=== PATIENT | male | born 1965 | race American Indian/Alaskan Native ===

== ENCOUNTER 2022-02-04 12:36 | Emergency (ER) | payer SELFPAY ==
[2022-02-04 12:51] VITALS: BP 176/89
== END 2022-02-04 19:28 | disposition left against medical advice (07) ==
LOC: ED 12:36
DX: R52 Pain, unspecified (principal); Z53.21 Procedure and treatment not carried out due to patient leaving prior to being seen by health care provider

== ENCOUNTER 2022-02-06 08:49 | Emergency (ER) | payer SELFPAY ==
[2022-02-06] MEDS ORDERED: cloNIDine 0.1 MG TAB PO ONE (10:12)
[2022-02-06] MEDS ORDERED: IBUPROFEN 800 MG TAB PO ONE (10:12)
--- NOTE | 2022-02-06 10:19 | Emergency Department Report ---
ED General Adult HPI - General Chief complaint: Extremity Injury, Lower Stated complaint: KNEE PAIN/ SWOLLEN PUI?: No Time Seen by Provider: 02/06/22 10:10 Source: patient Mode of arrival: Ambulatory Limitations: Language Barrier - History of Present Illness Initial comments: 56 yo comes to ER co b knee pain with no trauma. he states pain goes from one knee up his leg around his back and down the other denies back pain denies fever/chills denies abd pain ambulatory and nad on exam He states he called 911 and they told him bp and sugar are high he has no pcp he lives with friend no daily meds Severity scale (0 -10): 10 - Related Data Previous Rx's Medication Instructions Recorded Last Taken Type Ibuprofen [Motrin] 800 mg PO Q8HR PRN #30 tablet 02/06/22 Unknown Rx Sulfamethoxazole/Trimethoprim 1 each PO BID #10 tablet 02/06/22 Unknown Rx [Bactrim DS TAB] Allergies Allergy/AdvReac Type Severity Reaction Status Date / Time No Known Allergies Allergy Unverified 02/06/22 09:02 ED Review of Systems ROS: Stated complaint: KNEE PAIN/ SWOLLEN Other details as noted in HPI Comment: All other systems reviewed and negative ED Past Medical Hx - Past Medical History Previous Medical History?: No - Surgical History Past Surgical History?: No - Family History Family history: no significant - Social History Smoking Status: Never Smoker Substance Use Type: Alcohol - Medications Home Medications: Home Medications Medication Instructions Recorded Confirmed Last Taken Type Ibuprofen [Motrin] 800 mg PO Q8HR PRN #30 tablet 02/06/22 Unknown Rx Sulfamethoxazole/Trimethoprim 1 each PO BID #10 tablet 02/06/22 Unknown Rx [Bactrim DS TAB] ED Physical Exam - General Limitations: No Limitations, Language Barrier General appearance: alert, in no apparent distress - Head Head exam: Present: atraumatic, normocephalic - Eye Eye exam: Present: normal appearance - ENT ENT exam: Present: mucous membranes moist - Neck Neck exam: Present: normal inspection - Respiratory Respiratory exam: Present: normal lung sounds bilaterally. Absent: respiratory distress - Cardiovascular Cardiovascular Exam: Present: regular rate, normal rhythm. Absent: systolic murmur, diastolic murmur, rubs, gallop - GI/Abdominal GI/Abdominal exam: Present: soft, normal bowel sounds - Rectal Rectal exam: Present: deferred - Extremities Exam Extremities exam: Present: normal inspection - Back Exam Back exam: Present: normal inspection - Neurological Exam Neurological exam: Present: alert, oriented X3 - Psychiatric Psychiatric exam: Present: normal affect, normal mood - Skin Skin exam: Present: warm, dry, intact, normal color. Absent: rash ED Course Vital Signs 02/06/22 02/06/22 02/06/22 08:58 10:46 13:17 Temperature 98.8 F 96.8 F L Pulse Rate 91 H 91 H 82 Respiratory 16 Rate Blood Pressure 168/98 Blood Pressure 168/98 158/94 [Right] O2 Sat by Pulse 100 Oximetry ED Medical Decision Making - Lab Data Result diagrams: 02/06/22 10:26 02/06/22 10:26 - Medical Decision Making Labs 02/06/22 02/06/22 10:26 10:26 WBC 6.0 RBC 4.04 Hgb 12.9 Hct 37.7 MCV 93 MCH 32 MCHC 34 RDW 14.5 Plt Count 152 Sodium 133 L Potassium 3.9 Chloride 96.5 L Carbon Dioxide 29 Anion Gap 11 BUN 9 Creatinine 0.7 L Estimated GFR > 60 BUN/Creatinine Ratio 13 Glucose 137 H Calcium 10.1 Total Bilirubin 1.40 H AST 34 ALT 24 Alkaline Phosphatase 107 Total Protein 7.3 Albumin 4.5 Albumin/Globulin Ratio 1.6 Vital Signs 02/06/22 02/06/22 08:58 10:46 Temperature 98.8 F Pulse Rate 91 H 91 H Respiratory 16 Rate Blood Pressure 168/98 Blood Pressure 168/98 [Right] O2 Sat by Pulse 100 Oximetry Lab Results 02/06/22 02/06/22 02/06/22 Range/Units 10:26 10:26 11:04 WBC 6.0 (4.5-11.0) K/mm3 RBC 4.04 (3.65-5.03) M/mm3 Hgb 12.9 (11.8-15.2) gm/dl Hct 37.7 (35.5-45.6) % MCV 93 (84-94) fl MCH 32 (28-32) pg MCHC 34 (32-34) % RDW 14.5 (13.2-15.2) % Plt Count 152 (140-440) K/mm3 Sodium 133 L (137-145) mmol/L Potassium 3.9 (3.6-5.0) mmol/L Chloride 96.5 L (98-107) mmol/L Carbon Dioxide 29 (22-30) mmol/L Anion Gap 11 mmol/L BUN 9 (9-20) mg/dL Creatinine 0.7 L (0.8-1.3) mg/dL Estimated GFR > 60 ml/min BUN/Creatinine Ratio 13 % Glucose 137 H (75-100) mg/dL Calcium 10.1 (8.4-10.2) mg/dL Total Bilirubin 1.40 H (0.1-1.2) mg/dL AST 34 (5-40) units/L ALT 24 (7-56) units/L Alkaline Phosphatase 107 (35-129) units/L Total Protein 7.3 (6.3-8.2) g/dL Albumin 4.5 (3.9-5) g/dL Albumin/Globulin Ratio 1.6 % Urine Color Yellow (Yellow) Urine Turbidity Cloudy (Clear) Specific [place] (Man) 1.010 (1.003-1.030) Ur Protein (Man) 1+ (Negative) mg/dL Ur Ketones (Man) 2+ (Negative) Ur Nitrite (Man) Positive (Negative) Urine Bilirubin (Man) Negative (Negative) Leukocyte Esterase (Man) Large (Negative) Urine RBC (Manual) 1+ (Negative) denies dysuria or discharge ua noted will treat given nitrates and leuks bp treated with clonidine and it dec while in ER no cp no sob no neuro def no headache labs noted BG 137 - non fasting no fall/trauma- no indication for imaging pt educated on above and he verbalizes understanding of dc plan of care kuldipi lorna diet, meds, activity and follow up. Referral provided - Differential Diagnosis knee pain Critical care attestation.: If time is entered above; I have spent that time in minutes in the direct care of this critically ill patient, excluding procedure time. ED Disposition Clinical Impression: Elevated blood pressure reading, Hyperglycemia Knee pain Qualifiers: Chronicity: acute Laterality: bilateral Qualified Code(s): M25.561 - Pain in right knee; M25.562 - Pain in left knee UTI (urinary tract infection) Qualifiers: Urinary tract infection type: site unspecified Hematuria presence: without hematuria Qualified Code(s): N39.0 - Urinary tract infection, site not specified Disposition: 01 HOME / SELF CARE / HOMELESS Is pt being admited?: No Does the pt Need Aspirin: No Condition: Stable Instructions: Urinary Tract Infection, Adult, [id number], Hypertension, Adult Additional Instructions: med as ordered today monitor your blood pressure it was elevated today drink a lot of water avoid fried food avoid fast food avoid salt follow up with pcp referral below Prescriptions: Sulfamethoxazole/Trimethoprim [Bactrim DS TAB] 1 each PO BID #10 tablet Ibuprofen [Motrin] 800 mg PO Q8HR PRN #30 tablet PRN Reason: Pain, Moderate (4-6) Referrals: PRIMARY CAREMD [Primary Care Provider] - 3-5 Days PRABHAKAR BROWN MD [Staff Physician] - 3-5 Days Forms: Work/School Release Form(ED) Time of Disposition: 12:42
[2022-02-06 11:30] LABS: Hematocrit 37.7 % (35.5-45.6); Hemoglobin 12.9 gm/dl (11.8-15.2); Mean Corpuscular HGB Conc 34 % (32-34); Mean Corpuscular Volume 93 fl (84-94); Platelet Count 152 K/mm3 (140-440); Red Blood Count 4.04 M/mm3 (3.65-5.03); Red Cell Distribution Width 14.5 % (13.2-15.2)
[2022-02-06 12:03] LABS: Alanine Aminotransferase 24 units/L (7-56); Albumin 4.5 g/dL (3.9-5); Blood Urea Nitrogen 9 mg/dL (9-20); Calcium 10.1 mg/dL (8.4-10.2); Hemolysis Index 14
[2022-02-06 12:22] LABS: BUN/Creatinine Ratio 13
[2022-02-06 12:45] LABS: Color,Urine Yellow (Yellow)
[2022-02-06 13:03] LABS: Bacteria,Urine 4+ /HPF (Negative); Calcium Oxalate Crystals,Urine 1+; Mucus,Urine FEW /HPF; Renal Epithelial Cells,Urine <1 /LPF
[2022-02-06 13:25] VITALS: BP 158/94
== END 2022-02-06 13:26 | disposition home or self-care (01) ==
LOC: ED 08:49
DX: N39.0 Urinary tract infection, site not specified (principal); R73.9 Hyperglycemia, unspecified; M25.561 Pain in right knee; M25.562 Pain in left knee; I10 Essential (primary) hypertension
CPT/HCPCS: 36415; 80053; 81001; 85027; 87076; 87086; 87186; 99283